=== PATIENT | female | born 1960 | race Caucasian/White ===

== ENCOUNTER → 2017-02-04 | Outpatient (CLI) | payer BC ==
[~2017-02-04] MED LIST: FLONASE 0.05% N16 G1 INH; IBUPROFEN800 MG PO; MEDROL DOSEPAK4 MG PO; SINGULAIR; SUDAFED PO; TESSALON PERLE100 M1 PO; ZYRTEC10 M1
--- NOTE | ~2017-02-04 | CR63 ---
[facility]. [facility] A Service of [facility] & [facility] RADIOLOGY TEXT RESULTS PATIENT: PAPITO JEROME LOCATION: [facility] : 62 UNIT #: [id number] AGE: [address]: AREN HAYNES APRN SEX: F ORDER DR: [id number] [address] [id number] O MR#: [id number] Acc #: [id number] NAME: PAPITO JEROME : 1960 SEX: F STUDY DATE/TIME: 02/04/2017 14:02 UNIT: [facility] ROOM: STUDY DESCRIPTION: CR Chest 2 View Attending Physician: Aren Haynes Referring Physician: Aren Haynes Ordering Physician: Maria Luz Yan A.P.R.N. Primary Care Physician: Maria Luz Yan A.P.R.N. MEDICAL IMAGING REPORT This report is preliminary unless electronic signature is present. EXAM PA and lateral chest HISTORY Wheezing and cough for 4 days. FINDINGS A PA and lateral view of the chest were obtained. There is marked dextroscoliosis. Heart size and vascularity are normal and the lungs are clear. IMPRESSION No active disease. Dictated by... Rojas Hilton M.D. THIS IS AN ELECTRONICALLY VERIFIED REPORT Rojas Hilton M.D. at 02/05/2017 7:17 AM FEL/to TD: 02/04/2017 18:27 JOB #: [id number] MEDICAL IMAGING REPORT
== END | disposition home or self-care (01) ==
LOC: SRAD 13:51
DX: R05 Cough (principal); R06.2 Wheezing
CPT/HCPCS: 71020